=== PATIENT | male | born 1995 | race Two or more races ===

== ENCOUNTER 2023-03-11 10:32 | Emergency (ER) | payer OTHER ==
[~2023-03-11] VITALS: Ht 180.3 cm; Wt 64.4 kg
[2023-03-11] MEDS ORDERED: SYMTUZA 800-151 EACH (10:44)
[2023-03-11] MEDS ORDERED: VALACYCLOVIR1000 MG PO (10:45)
[2023-03-11] MEDS ORDERED: MORGIDOX100 MG (10:45)
[2023-03-11] MEDS ORDERED: DICLOFENAC SODI75 MG PO (14:34)
[2023-03-11] MEDS ORDERED: NORFLEX100MG PO (14:34)
[2023-03-11] MEDS ORDERED: DUI500 PO (14:34)
== END 2023-03-11 14:54 | disposition home or self-care (01) ==
LOC: ER 10:32
PROVIDERS: General Practice
DX: M54.9 Dorsalgia, unspecified (principal); M25.572 Pain in left ankle and joints of left foot